=== PATIENT | male | born 1995 | race Caucasian/White ===

== ENCOUNTER 2016-09-09 08:17 | Emergency (ER) | payer SELFPAY ==
--- NOTE | 2016-09-09 11:35 | ED NURSING NOTES ---
Clinical Report - Nurses [facility] [address] [place] [address] 09/09/2016 8:19 Patient: IGNACIO MAST TRIAGE Triage time 08:Sep 09 2016. Acuity: LEVEL 4. Chief Complaint: REDNESS and PAIN TO LEFT EYE. --08:35 Henrique North R.N. 08:28 09/09/16. BP: 123/80. HR: 71. RR: 18. O2 saturation: 100%. Temp: 97.9 F. Pain level now 03/12. --08:35 Henrique North R.N. Weight: 74.8 kg stated. Height/Length: 71 inches Per Patient. BMI: 23. --08:33 Henrique North R.N. Medications None. --08:30 Henrique North R.N. Allergies No Known Drug Allergy. --08:30 Henrique North R.N. History Arrived by private vehicle. Historian: patient. Accompanied by family. Primary physician ([facility] medicine). This started last night. He did not sustain an injury. Mechanism- woke up with pain in left eye took out contact soft contacts then felt tearing and burning or something is scratching the inside of his eye. He has had severe eye discomfort involving the left eye also with burning and "pain". He has had moderate eye irritation involving the left eye. He has had photophobia (bilateral sensitivity). 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 PAST MEDICAL HX: The patient wears soft, extended wear contact lenses. No history of diabetes mellitus or hypertension. No history of glaucoma or prior eye injury. SOCIAL HX: Smoker- current status unknown. Occasional alcohol use; consumes two beers occasionally. No drug use. ABUSE ASSESSMENT: Abuse assessment: (yes). No report of abuse. SELF HARM ASSESSMENT: A self harm assessment was performed. The patient answered "no" to the question "Have you recently felt down, depressed, or hopeless?" and "Do you have thoughts of harming or killing yourself?". FALL RISK ASSESSMENT: Fall risk assessment completed. No fall risk identified. NUTRITIONAL RISK ASSESSMENT: The nutritional risk assessment revealed no deficiencies. FUNCTIONAL ASSESSMENT: Functional assessment: no impairments noted. LEARNING NEEDS ASSESSMENT: The learning needs assessment revealed no barriers. SKIN INTEGRITY ASSESSMENT: Skin integrity risk assessment completed. No skin integrity risk identified. --08:35 Henrique North R.N. PROBLEMS: no known problems. Interventions ID band on patient. --08:35 Henrique North R.N. PHYSICAL ASSESSMENT Ambulatory to room. ( Unable to open eye currently without severe pain and watering will wait for MD to asses.). GENERAL / NEURO / PSYCH: Alert. Appears in pain. No double vision. HEENT: No facial asymmetry noted. Photophobia present. Right ear within normal limits. Left ear within normal limits. Mouth inspection within normal limits. Pharynx within normal limits. No conjunctival findings. RESPIRATORY: Respirations not labored. CVS: Capillary refill less than 2 seconds. SKIN: Skin is warm and dry. Normal skin turgor. --08:37 Henrique North R.N. HEENT: Visual acuity without corrective lenses: left eye 20/70 minus two letters; right eye 20/70 minus one letter. Patient normally wears corrective lenses. --09:55 Henrique North R.N. NURSING PROGRESS NOTES The initial plan of care for this patient includes an assessment with efforts to address patient positioning and appropriate ambient lighting; visual impairments. Pulse oximeter and NIBP monitor placed on patient. Head of bed elevated (45). Call light placed in reach. Bed placed in lowest position. Brakes of bed on. --08:38 Henrique North R.N. 09:15 09/09/2016 Proparacaine Eye Drops Opthalmic solution 2 drop given. Given in the left eye. Allergies verified and confirmed 5 rights. --09:20 Henrique North R.N. DISPOSITION / DISCHARGE 11:45 09/09/16. BP: 119/77. HR: 71. RR: 18. O2 saturation: 100%. Pain level now: 09/12. --15:17 Britta Denise R.N. Departure time: 1145. No learning barriers present. Discharge instructions provided and reviewed with the patient and family. Reviewed medication(s) information. Prescription(s) given to the patient. Reviewed referral to an portable sawyer for followup. Patient verbalized understanding. Written instructions provided. The patient was discharged home and accompanied by family. He left the Emergency Department ambulatory and via private vehicle. --15:18 Britta Denise R.N. Locked/Released at 09/09/2016 15:21 by Britta Denise R.N.
--- NOTE | 2016-09-09 11:35 | ED CLINICAL REPORT ---
Clinical Report - Physicians/Mid Levels [facility] [address] [place] [address] 09/09/2016 8:19 Patient: IGNACIO MAST Time Seen: 09:30. Arrived- By private vehicle. Historian- patient. HISTORY OF PRESENT ILLNESS Chief Complaint: EYE PAIN. This started today, involves the left eye and is characterized as moderate in severity. Extended wear contacts. No known injury. The patient sustained injury. He wears contact lenses. No direct trauma to the eyes. No chemical exposure, suspected foreign body in eye or UV light exposure. Eye pain. No eyelid swelling, blurred vision or double vision. Photophobia. REVIEW OF SYSTEMS No fever, sore throat or cough. PAST HISTORY PCP: Juli Illness: None. ADDITIONAL NOTES The nursing notes have been reviewed. PHYSICAL EXAM Vital Signs: 09/09/2016 11:45 BP: 119/77. HR: 71. RR: 18. O2 saturation: 100%. Pain level now: 09/12. 09/09/2016 08:28 BP: 123/80. HR: 71. RR: 18. O2 saturation: 100%. Temp: 97.9 F. Appearance: ( Done with pinhole occluder - HEENT: Visual acuity without corrective lenses: left eye 20/70 minus two letters; right eye 20/70 minus one letter. Patient normally wears corrective lenses). Eyes: Visual acuity noted. Left eyelid everted for examination. Eyelids appear normal to inspection. Pupils equal, round and reactive to light. Periorbital areas appear normal to inspection. Left eye examined with slit lamp. Lt Eye: Eyelid erythema (of conjunctival surface only). Moderately injected conjunctiva (Worse around the limbus.). Multiple small corneal abrasions located centrally (two very minute round corneal lesions. High magnification needed to see them clearly). Fluorescein dye uptake on the cornea (faint as above). Pupil regular. No hyphema, conjunctival edema or foreign body or subconjunctival hemorrhage. No injury to the conjunctiva or sclera, corneal foreign body or EOM palsy. No foreign body under the eyelid. No injury to the eyelids. No exudate present. CVS: Heart sounds normal. Respiratory: No respiratory distress. Breath sounds normal. PROGRESS AND PROCEDURES Course of Care: 10:56 09/09/16. Discussed plan and follow up with Dr Odom. Ophtho. Pt understands that this is a serious infection and that treatment will be expensive. Disposition: Discharged. Condition: stable. 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 INSTRUCTIONS Do not work for three days. (SEE EYE DR ON SUN RETURN TO ER IF WORSE TOMORROW.). Prescription Medications: Hydrocodone/APAP 5mg / 325mg: take 1-2 orally every 4 hours as needed for pain. Dispense fifteen (15). No refill. First choice Besivance one bottle 1 gtt L eye every 4 hours round the clock. good second choice Vigamox ophthal one bottle 1 gtt L eye every 4 hours round the clock. Understanding of the discharge instructions verbalized by patient. Follow-up with: David Townsend MD, Ophthalmology, , [facility], [address] [place] [address] Follow up Sunday even if well. Call for an appointment. Reason for referral: REPEAT EXAM OF CORNEAL ULCER. (Electronically signed by Bill Martinez MD 09/11/2016 12:55)
--- NOTE | 2016-09-09 11:35 | ED ORDER SUMMARY ---
..... Patient: IGNACIO MAST OrderSheet [facility] VisitID: [id number] [address] [place] [address] 21y, M Registration Date/Time: 09/09/2016 ORDER SHEET Weight: 74.8 kg (stated) Allergies: No Known Drug Allergy GENERAL ORDERS: - (EYE NUMB NOW. VISUAL ACUITIES PLEASE) (09:34 09/09/2016 Antony TREJO) (Ack 9:39 OHernandez) (10:42 LWhalen R.N.) - (RINSE DYE OUT OF L EYE PLEASE) (10:09 09/09/2016 Antony TREJO) (10:42 LWhalen R.N.) MEDICATION ORDERS: Proparacaine Eye Drops (Solution 0.5 %) 2 drops (NOW, affected eye) (09:19 09/09/2016 LWkeyona R.N. per protocol) (9:20 LWhalen R.N.) IV FLUIDS: ORDER SHEET NOTES: [Electronically signed by Britta Denise R.N. (15:21 09/09/2016)] [Electronically signed by Bill Martinez MD (12:55 09/11/2016)] [Electronically locked/signed by Britta Denise R.N. (15:09/09/2016)]
--- NOTE | 2016-09-09 11:35 | ED CLINICAL REPORT ---
Clinical Report - Physicians/Mid Levels [facility] [address] [place] [address] 09/09/2016 8:19 Patient: IGNACIO MAST Time Seen: 09:30. Arrived- By private vehicle. Historian- patient. HISTORY OF PRESENT ILLNESS Chief Complaint: EYE PAIN. This started today, involves the left eye and is characterized as moderate in severity. Extended wear contacts. No known injury. The patient sustained injury. He wears contact lenses. No direct trauma to the eyes. No chemical exposure, suspected foreign body in eye or UV light exposure. Eye pain. No eyelid swelling, blurred vision or double vision. Photophobia. REVIEW OF SYSTEMS No fever, sore throat or cough. PAST HISTORY PCP: Juli Illness: None. ADDITIONAL NOTES The nursing notes have been reviewed. PHYSICAL EXAM Vital Signs: 09/09/2016 11:45 BP: 119/77. HR: 71. RR: 18. O2 saturation: 100%. Pain level now: 09/12. 09/09/2016 08:28 BP: 123/80. HR: 71. RR: 18. O2 saturation: 100%. Temp: 97.9 F. Appearance: ( Done with pinhole occluder - HEENT: Visual acuity without corrective lenses: left eye 20/70 minus two letters; right eye 20/70 minus one letter. Patient normally wears corrective lenses). Eyes: Visual acuity noted. Left eyelid everted for examination. Eyelids appear normal to inspection. Pupils equal, round and reactive to light. Periorbital areas appear normal to inspection. Left eye examined with slit lamp. Lt Eye: Eyelid erythema (of conjunctival surface only). Moderately injected conjunctiva (Worse around the limbus.). Multiple small corneal abrasions located centrally (two very minute round corneal lesions. High magnification needed to see them clearly). Fluorescein dye uptake on the cornea (faint as above). Pupil regular. No hyphema, conjunctival edema or foreign body or subconjunctival hemorrhage. No injury to the conjunctiva or sclera, corneal foreign body or EOM palsy. No foreign body under the eyelid. No injury to the eyelids. No exudate present. CVS: Heart sounds normal. Respiratory: No respiratory distress. Breath sounds normal. PROGRESS AND PROCEDURES Course of Care: 10:56 09/09/16. Discussed plan and follow up with Dr Odom. Ophtho. Pt understands that this is a serious infection and that treatment will be expensive. Disposition: Discharged. Condition: stable. 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 INSTRUCTIONS Do not work for three days. (SEE EYE DR ON SUN RETURN TO ER IF WORSE TOMORROW.). Prescription Medications: Hydrocodone/APAP 5mg / 325mg: take 1-2 orally every 4 hours as needed for pain. Dispense fifteen (15). No refill. First choice Besivance one bottle 1 gtt L eye every 4 hours round the clock. good second choice Vigamox ophthal one bottle 1 gtt L eye every 4 hours round the clock. Understanding of the discharge instructions verbalized by patient. Follow-up with: David Townsend MD, Ophthalmology, , [facility], [address] [place] [address] Follow up Sunday even if well. Call for an appointment. Reason for referral: REPEAT EXAM OF CORNEAL ULCER. (Electronically signed by Bill Martinez MD 09/11/2016 12:55)
--- NOTE | 2016-09-09 11:35 | ED ORDER SUMMARY ---
..... Patient: IGNACIO MAST OrderSheet [facility] VisitID: [id number] [address] [place] [address] 21y, M Registration Date/Time: 09/09/2016 ORDER SHEET Weight: 74.8 kg (stated) Allergies: No Known Drug Allergy GENERAL ORDERS: - (EYE NUMB NOW. VISUAL ACUITIES PLEASE) (09:34 09/09/2016 Antony TREJO) (Ack 9:39 OHernandez) (10:42 LWhalen R.N.) - (RINSE DYE OUT OF L EYE PLEASE) (10:09 09/09/2016 Antony TREJO) (10:42 LWhalen R.N.) MEDICATION ORDERS: Proparacaine Eye Drops (Solution 0.5 %) 2 drops (NOW, affected eye) (09:19 09/09/2016 LWkeyona R.N. per protocol) (9:20 LWhalen R.N.) IV FLUIDS: ORDER SHEET NOTES: [Electronically signed by Britta Denise R.N. (15:21 09/09/2016)] [Electronically signed by Bill Martinez MD (12:55 09/11/2016)] [Electronically locked/signed by Britta Denise R.N. (15:09/09/2016)]
--- NOTE | 2016-09-09 11:35 | ED NURSING NOTES ---
Clinical Report - Nurses [facility] [address] [place] [address] 09/09/2016 8:19 Patient: IGNACIO MAST TRIAGE Triage time 08:Sep 09 2016. Acuity: LEVEL 4. Chief Complaint: REDNESS and PAIN TO LEFT EYE. --08:35 Henrique North R.N. 08:28 09/09/16. BP: 123/80. HR: 71. RR: 18. O2 saturation: 100%. Temp: 97.9 F. Pain level now 03/12. --08:35 Henrique North R.N. Weight: 74.8 kg stated. Height/Length: 71 inches Per Patient. BMI: 23. --08:33 Henrique North R.N. Medications None. --08:30 Henrique North R.N. Allergies No Known Drug Allergy. --08:30 Henrique North R.N. History Arrived by private vehicle. Historian: patient. Accompanied by family. Primary physician ([facility] medicine). This started last night. He did not sustain an injury. Mechanism- woke up with pain in left eye took out contact soft contacts then felt tearing and burning or something is scratching the inside of his eye. He has had severe eye discomfort involving the left eye also with burning and "pain". He has had moderate eye irritation involving the left eye. He has had photophobia (bilateral sensitivity). 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 PAST MEDICAL HX: The patient wears soft, extended wear contact lenses. No history of diabetes mellitus or hypertension. No history of glaucoma or prior eye injury. SOCIAL HX: Smoker- current status unknown. Occasional alcohol use; consumes two beers occasionally. No drug use. ABUSE ASSESSMENT: Abuse assessment: (yes). No report of abuse. SELF HARM ASSESSMENT: A self harm assessment was performed. The patient answered "no" to the question "Have you recently felt down, depressed, or hopeless?" and "Do you have thoughts of harming or killing yourself?". FALL RISK ASSESSMENT: Fall risk assessment completed. No fall risk identified. NUTRITIONAL RISK ASSESSMENT: The nutritional risk assessment revealed no deficiencies. FUNCTIONAL ASSESSMENT: Functional assessment: no impairments noted. LEARNING NEEDS ASSESSMENT: The learning needs assessment revealed no barriers. SKIN INTEGRITY ASSESSMENT: Skin integrity risk assessment completed. No skin integrity risk identified. --08:35 Henrique North R.N. PROBLEMS: no known problems. Interventions ID band on patient. --08:35 Henrique North R.N. PHYSICAL ASSESSMENT Ambulatory to room. ( Unable to open eye currently without severe pain and watering will wait for MD to asses.). GENERAL / NEURO / PSYCH: Alert. Appears in pain. No double vision. HEENT: No facial asymmetry noted. Photophobia present. Right ear within normal limits. Left ear within normal limits. Mouth inspection within normal limits. Pharynx within normal limits. No conjunctival findings. RESPIRATORY: Respirations not labored. CVS: Capillary refill less than 2 seconds. SKIN: Skin is warm and dry. Normal skin turgor. --08:37 Henrique North R.N. HEENT: Visual acuity without corrective lenses: left eye 20/70 minus two letters; right eye 20/70 minus one letter. Patient normally wears corrective lenses. --09:55 Henrique North R.N. NURSING PROGRESS NOTES The initial plan of care for this patient includes an assessment with efforts to address patient positioning and appropriate ambient lighting; visual impairments. Pulse oximeter and NIBP monitor placed on patient. Head of bed elevated (45). Call light placed in reach. Bed placed in lowest position. Brakes of bed on. --08:38 Henrique North R.N. 09:15 09/09/2016 Proparacaine Eye Drops Opthalmic solution 2 drop given. Given in the left eye. Allergies verified and confirmed 5 rights. --09:20 Henrique North R.N. DISPOSITION / DISCHARGE 11:45 09/09/16. BP: 119/77. HR: 71. RR: 18. O2 saturation: 100%. Pain level now: 09/12. --15:17 Britta Denise R.N. Departure time: 1145. No learning barriers present. Discharge instructions provided and reviewed with the patient and family. Reviewed medication(s) information. Prescription(s) given to the patient. Reviewed referral to an production line solderer for followup. Patient verbalized understanding. Written instructions provided. The patient was discharged home and accompanied by family. He left the Emergency Department ambulatory and via private vehicle. --15:18 Britta Denise R.N. Locked/Released at 09/09/2016 15:21 by Britta Denise R.N.
--- NOTE | 2016-09-11 12:56 | ED DISCHARGE INSTRUCTIONS ---
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 INSTRUCTIONS Do not work for three days. (SEE EYE DR ON SUN RETURN TO ER IF WORSE TOMORROW.). Prescription Medications: Hydrocodone/APAP 5mg / 325mg: take 1-2 orally every 4 hours as needed for pain. Dispense fifteen (15). No refill. First choice Besivance one bottle 1 gtt L eye every 4 hours round the clock. good second choice Vigamox ophthal one bottle 1 gtt L eye every 4 hours round the clock. Understanding of the discharge instructions verbalized by patient. Follow-up with: David Townsend MD, Ophthalmology, , [facility], [address] [place] [address] Follow up Sunday even if well. Call for an appointment. Reason for referral: REPEAT EXAM OF CORNEAL ULCER. ADDITIONAL INFORMATION Corneal Ulcer The cornea is the clear part of your eye in front of the iris (the colored portion). A corneal ulcer is an open sore on the cornea. The most common cause for a corneal ulcer is infection by bacteria, virus or fungus. A scratch to the cornea that becomes infected can lead to a corneal ulcer. Use of contact lenses also increases the risk of a bacterial infection in the cornea. Any condition that causes dry eyes, such as decreased tear production or inability to blink normally, will increase the risk of a corneal ulcer. Chemical injury to the eye is another risk factor for a corneal ulcer. If you have a corneal ulcer there may be redness, pain, increased tears and pus or mucus draining from the eye. Your vision may be blurry and the eyelid may swell. Corneal ulcers are very serious. They may cause permanent scarring to the eye with partial or complete blindness. Therefore, this condition must be treated very carefully. With proper treatment, corneal ulcers should improve in 2-3 weeks. Close follow up with an manual lathe machinist (an MD eye doctor) is essential. Home Care: Do not wear contact lenses until approved by your eye doctor. Apply a cool compress to the eye (towel soaked in cool water). Do not touch or rub your eye with your fingers. Wash your hands often to prevent spread of the infection to the other eye. You may use acetaminophen (Tylenol) or ibuprofen (Motrin, Advil) to control pain, unless another pain medicine was prescribed. [NOTE: If you have chronic liver or kidney disease or have ever had a stomach ulcer, talk with your doctor before using these medicines.] Use prescribed antibiotic eye drops or ointment exactly as directed. Follow Up with your eye doctor in 1-2 days or as advised by our staff. For more information, contact the [employer] www.aao.org Get Prompt Medical Attention if any of the following occur: Worsening vision Increasing pain in the eye Increased discharge from the eye Fever of 100.4F(38C) or higher, or as directed by your healthcare provider Hydrocodone Bitartrate, Acetaminophen Oral tablet What is this medicine? ACETAMINOPHEN; HYDROCODONE (a set a ROMEO regi fen; sonya droe KOE done) is a pain reliever. It is used to treat mild to moderate pain. How should I use this medicine? Take this medicine by mouth. Swallow it with a full glass of water. Follow the directions on the prescription label. If the medicine upsets your stomach, take the medicine with food or milk. Do not take more than you are told to take. Talk to your linotypist regarding the use of this medicine in children. This medicine is not approved for use in children. What side effects may I notice from receiving this medicine? Side effects that you should report to your doctor or health home health care case manager as soon as possible: allergic reactions like skin rash, itching or hives, swelling of the face, lips, or tongue breathing problems confusion feeling faint or lightheaded, falls stomach pain yellowing of the eyes or skin Side effects that usually do not require medical attention (report to your doctor or health home health care case manager if they continue or are bothersome): nausea, vomiting stomach upset What may interact with this medicine? alcohol antihistamines isoniazid medicines for depression, anxiety, or psychotic disturbances medicines for sleep muscle relaxants naltrexone narcotic medicines (opiates) for pain phenobarbital ritonavir tramadol What if I miss a dose? If you miss a dose, take it as soon as you can. If it is almost time for your next dose, take only that dose. Do not take double or extra doses. Where should I keep my medicine? Keep out of the reach of children. This medicine can be abused. Keep your medicine in a safe place to protect it from theft. Do not share this medicine with anyone. Selling or giving away this medicine is dangerous and against the law. Store at room temperature between 15 and 30 degrees C (59 and 86 degrees F). Protect from light. Keep container tightly closed. Throw away any unused medicine after the expiration date. Discard unused medicine and used packaging carefully. Pets and children can be harmed if they find used or lost packages. What should I tell my health care provider before I take this medicine? They need to know if you have any of these conditions: brain tumor Crohn's disease, inflammatory bowel disease, or ulcerative colitis drink more than 3 alcohol-containing drinks per day drug abuse or addiction head injury heart or circulation problems kidney disease or problems going to the bathroom liver disease lung disease, asthma, or breathing problems an unusual or allergic reaction to acetaminophen, hydrocodone, other opioid analgesics, other medicines, foods, dyes, or preservatives or trying to get breast-feeding What should I watch for while using this medicine? Tell your doctor or health home health care case manager if your pain does not go away, if it gets worse, or if you have new or a different type of pain. You may develop tolerance to the medicine. Tolerance means that you will need a higher dose of the medicine for pain relief. Tolerance is normal and is expected if you take the medicine for a long time. Do not suddenly stop taking your medicine because you may develop a severe reaction. Your body becomes used to the medicine. This does NOT mean you are addicted. Addiction is a behavior related to getting and using a drug for a non-medical reason. If you have pain, you have a medical reason to take pain medicine. Your doctor will tell you how much medicine to take. If your doctor wants you to stop the medicine, the dose will be slowly lowered over time to avoid any side effects. You may get drowsy or dizzy when you first start taking the medicine or change doses. Do not drive, use machinery, or do anything that may be dangerous until you know how the medicine affects you. Stand or sit up slowly. There are different types of narcotic medicines (opiates) for pain. If you take more than one type at the same time, you may have more side effects. Give your health care provider a list of all medicines you use. Your doctor will tell you how much medicine to take. Do not take more medicine than directed. Call emergency for help if you have problems breathing. The medicine will cause constipation. Try to have a bowel movement at least every 2 to 3 days. If you do not have a bowel movement for 3 days, call your doctor or health home health care case manager. Too much acetaminophen can be very dangerous. Do not take Tylenol (acetaminophen) or medicines that contain acetaminophen with this medicine. Many non-prescription medicines contain acetaminophen. Always read the labels carefully. You have been given the following additional information: Corneal Ulcer Hydrocodone Bitartrate, Acetaminophen Oral tablet Do not work for three days. (Electronically signed by Bill Martinez MD 09/11/2016 12:55)
--- NOTE | 2016-09-11 12:56 | ED MAR SUMMARY ---
..... Medication Administration Record Formerly [facility] [address] [place] [address] Patient: IGNACIO MAST Visit ID: [id number] 21y, M Weight: 74.8 kg Height/Length: 71 in BMI: 23 ALLERGIES: No Known Drug Allergy Given 09:15 09/09/2016 Henrique North R.N. Medication Administered: PROPARACAINE [EYE DROPS], Dose: 2 drop Opthalmic solution Eye Drops. Medication Ordered: Proparacaine Eye Drops (Solution 0.5 %) 2 drops (NOW, affected eye).
--- NOTE | 2016-09-11 12:56 | ED MED RECONCILIATION SUMMARY ---
Patient: IGNACIO MAST Medication Reconciliation Report [facility] VisitID: [id number] [address] [place] [address] 21y, M Registration Date/Time: 09/09/2016 Weight: 74.8 kg Height/Length: 71 in. BMI: 23.0 ALLERGIES: No Known Drug Allergy The patient's Home Medications are listed below: NONE. The source(s) of the original Home Medication information: Not obtained. The following Medications were given to the patient in the Emergency Department: Proparacaine [Eye Drops] Eye Drops 2 drop, administered: 09/09/2016 9:15:00 AM The following Medications were prescribed to the patient: Hydrocodone/APAP 5mg / 325mg: take 1-2 orally every 4 hours as needed for pain. Dispense fifteen (15). No refill. -- Bill Martinez MD First choice Besivance one bottle 1 gtt L eye every 4 hours round the clock.good second choiceVigamox ophthal one bottle 1 gtt L eye every 4 hours round the clock. -- Bill Martinez MD
--- NOTE | 2016-09-11 12:56 | ED MAR SUMMARY ---
..... Medication Administration Record [facility] [address] [place] [address] Patient: IGNACIO MAST Visit ID: [id number] 21y, M Weight: 74.8 kg Height/Length: 71 in BMI: 23 ALLERGIES: No Known Drug Allergy Given 09:15 09/09/2016 Henrique North R.N. Medication Administered: PROPARACAINE [EYE DROPS], Dose: 2 drop Opthalmic solution Eye Drops. Medication Ordered: Proparacaine Eye Drops (Solution 0.5 %) 2 drops (NOW, affected eye).
--- NOTE | 2016-09-11 12:56 | ED DISCHARGE INSTRUCTIONS ---
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 INSTRUCTIONS Do not work for three days. (SEE EYE DR ON SUN RETURN TO ER IF WORSE TOMORROW.). Prescription Medications: Hydrocodone/APAP 5mg / 325mg: take 1-2 orally every 4 hours as needed for pain. Dispense fifteen (15). No refill. First choice Besivance one bottle 1 gtt L eye every 4 hours round the clock. good second choice Vigamox ophthal one bottle 1 gtt L eye every 4 hours round the clock. Understanding of the discharge instructions verbalized by patient. Follow-up with: David Townsend MD, Ophthalmology, , [facility], [address] [place] [address] Follow up Sunday even if well. Call for an appointment. Reason for referral: REPEAT EXAM OF CORNEAL ULCER. ADDITIONAL INFORMATION Corneal Ulcer The cornea is the clear part of your eye in front of the iris (the colored portion). A corneal ulcer is an open sore on the cornea. The most common cause for a corneal ulcer is infection by bacteria, virus or fungus. A scratch to the cornea that becomes infected can lead to a corneal ulcer. Use of contact lenses also increases the risk of a bacterial infection in the cornea. Any condition that causes dry eyes, such as decreased tear production or inability to blink normally, will increase the risk of a corneal ulcer. Chemical injury to the eye is another risk factor for a corneal ulcer. If you have a corneal ulcer there may be redness, pain, increased tears and pus or mucus draining from the eye. Your vision may be blurry and the eyelid may swell. Corneal ulcers are very serious. They may cause permanent scarring to the eye with partial or complete blindness. Therefore, this condition must be treated very carefully. With proper treatment, corneal ulcers should improve in 2-3 weeks. Close follow up with an events intern (an MD eye doctor) is essential. Home Care: Do not wear contact lenses until approved by your eye doctor. Apply a cool compress to the eye (towel soaked in cool water). Do not touch or rub your eye with your fingers. Wash your hands often to prevent spread of the infection to the other eye. You may use acetaminophen (Tylenol) or ibuprofen (Motrin, Advil) to control pain, unless another pain medicine was prescribed. [NOTE: If you have chronic liver or kidney disease or have ever had a stomach ulcer, talk with your doctor before using these medicines.] Use prescribed antibiotic eye drops or ointment exactly as directed. Follow Up with your eye doctor in 1-2 days or as advised by our staff. For more information, contact the [employer] www.aao.org Get Prompt Medical Attention if any of the following occur: Worsening vision Increasing pain in the eye Increased discharge from the eye Fever of 100.4F(38C) or higher, or as directed by your healthcare provider Hydrocodone Bitartrate, Acetaminophen Oral tablet What is this medicine? ACETAMINOPHEN; HYDROCODONE (a set a ROMEO regi fen; sonya droe KOE done) is a pain reliever. It is used to treat mild to moderate pain. How should I use this medicine? Take this medicine by mouth. Swallow it with a full glass of water. Follow the directions on the prescription label. If the medicine upsets your stomach, take the medicine with food or milk. Do not take more than you are told to take. Talk to your security team lead regarding the use of this medicine in children. This medicine is not approved for use in children. What side effects may I notice from receiving this medicine? Side effects that you should report to your doctor or health direct care supervisor as soon as possible: allergic reactions like skin rash, itching or hives, swelling of the face, lips, or tongue breathing problems confusion feeling faint or lightheaded, falls stomach pain yellowing of the eyes or skin Side effects that usually do not require medical attention (report to your doctor or health direct care supervisor if they continue or are bothersome): nausea, vomiting stomach upset What may interact with this medicine? alcohol antihistamines isoniazid medicines for depression, anxiety, or psychotic disturbances medicines for sleep muscle relaxants naltrexone narcotic medicines (opiates) for pain phenobarbital ritonavir tramadol What if I miss a dose? If you miss a dose, take it as soon as you can. If it is almost time for your next dose, take only that dose. Do not take double or extra doses. Where should I keep my medicine? Keep out of the reach of children. This medicine can be abused. Keep your medicine in a safe place to protect it from theft. Do not share this medicine with anyone. Selling or giving away this medicine is dangerous and against the law. Store at room temperature between 15 and 30 degrees C (59 and 86 degrees F). Protect from light. Keep container tightly closed. Throw away any unused medicine after the expiration date. Discard unused medicine and used packaging carefully. Pets and children can be harmed if they find used or lost packages. What should I tell my health care provider before I take this medicine? They need to know if you have any of these conditions: brain tumor Crohn's disease, inflammatory bowel disease, or ulcerative colitis drink more than 3 alcohol-containing drinks per day drug abuse or addiction head injury heart or circulation problems kidney disease or problems going to the bathroom liver disease lung disease, asthma, or breathing problems an unusual or allergic reaction to acetaminophen, hydrocodone, other opioid analgesics, other medicines, foods, dyes, or preservatives or trying to get breast-feeding What should I watch for while using this medicine? Tell your doctor or health direct care supervisor if your pain does not go away, if it gets worse, or if you have new or a different type of pain. You may develop tolerance to the medicine. Tolerance means that you will need a higher dose of the medicine for pain relief. Tolerance is normal and is expected if you take the medicine for a long time. Do not suddenly stop taking your medicine because you may develop a severe reaction. Your body becomes used to the medicine. This does NOT mean you are addicted. Addiction is a behavior related to getting and using a drug for a non-medical reason. If you have pain, you have a medical reason to take pain medicine. Your doctor will tell you how much medicine to take. If your doctor wants you to stop the medicine, the dose will be slowly lowered over time to avoid any side effects. You may get drowsy or dizzy when you first start taking the medicine or change doses. Do not drive, use machinery, or do anything that may be dangerous until you know how the medicine affects you. Stand or sit up slowly. There are different types of narcotic medicines (opiates) for pain. If you take more than one type at the same time, you may have more side effects. Give your health care provider a list of all medicines you use. Your doctor will tell you how much medicine to take. Do not take more medicine than directed. Call emergency for help if you have problems breathing. The medicine will cause constipation. Try to have a bowel movement at least every 2 to 3 days. If you do not have a bowel movement for 3 days, call your doctor or health direct care supervisor. Too much acetaminophen can be very dangerous. Do not take Tylenol (acetaminophen) or medicines that contain acetaminophen with this medicine. Many non-prescription medicines contain acetaminophen. Always read the labels carefully. You have been given the following additional information: Corneal Ulcer Hydrocodone Bitartrate, Acetaminophen Oral tablet Do not work for three days. (Electronically signed by Bill Martinez MD 09/11/2016 12:55)
--- NOTE | 2016-09-11 12:56 | ED MED RECONCILIATION SUMMARY ---
Patient: IGNACIO MAST Medication Reconciliation Report [facility] VisitID: [id number] [address] [place] [address] 21y, M Registration Date/Time: 09/09/2016 Weight: 74.8 kg Height/Length: 71 in. BMI: 23.0 ALLERGIES: No Known Drug Allergy The patient's Home Medications are listed below: NONE. The source(s) of the original Home Medication information: Not obtained. The following Medications were given to the patient in the Emergency Department: Proparacaine [Eye Drops] Eye Drops 2 drop, administered: 09/09/2016 9:15:00 AM The following Medications were prescribed to the patient: Hydrocodone/APAP 5mg / 325mg: take 1-2 orally every 4 hours as needed for pain. Dispense fifteen (15). No refill. -- Bill Martinez MD First choice Besivance one bottle 1 gtt L eye every 4 hours round the clock.good second choiceVigamox ophthal one bottle 1 gtt L eye every 4 hours round the clock. -- Bill Martinez MD
== END 2016-09-09 11:45 | disposition home or self-care (01) ==
LOC: ED SRH 08:17
DX: H16.012 Central corneal ulcer, left eye (principal)